=== PATIENT | female | born 1965 | race Caucasian/White ===

== ENCOUNTER 2016-08-15 08:42 | Day surgery (SDC) | payer BC, OTHER ==
[~2016-08-15 08:42] MED LIST: RINGERS SOLUTION,LACTATED 1,000 ML IV PRN
--- OUTSIDE RECORDS SUMMARY | 2016-08-15 08:44 | XMS REPORT | Continuity of Care Document ---
:1965 Author Organization [facility] ([facility]) Address [address] [place] [address] Phone [phone] Care Team Providers Name Role Phone Unavailable Primary Care Provider Unavailable Source Comments This disclosure is being made pursuant to the Care Everywhere program, applicable federal and state laws, and may not contain all informaitonavailable regarding this patient.[facility] ([facility]) Active Allergies and Adverse Reactions Not on File Current Medications Not on file Active Problems Not on file Social History Tobacco Use Types Packs/Day Years Used Date Never Assessed Plan of Care Health Maintenance Due Date Last Done Comments HCV Screening 1965 Hepatitis B Vaccine (1 of 3 - Primary Series) 1965 Tdap Vaccine 11/26/1975 Lipid Disorder Screening 1982 MMR Vaccine 1982 Td Vaccine 1982 Cervical Cancer Screening 1994 Mammogram 2004 Colonoscopy 2014 Influenza Vaccine: Seasonal (#1) 01/24/2016 Results from Last 3 Months Not on file
[2016-08-15 09:02] LABS: Hematocrit 38.7 % (37.0-47.0); Hemoglobin 13.3 gm/dL (12.5-16.0); Mean Cell Volume 87.2 fl (78-100); Mean Corpuscular Hgb Conc 34.4 g/dl (32-36); Mean Platelet Volume 9.8 fl (6.0-9.5); Neutrophil # 2.6 K/mm3 (1.3-6.0); Neutrophil % 52.2 % (42-75.0); Platelet Count 265 K/mm3 (150-450); Red Blood Count 4.44 M/mm3 (4.2-5.4); Red Cell Distribution Width 12.1 % (11.5-14.0)
[2016-08-15] MEDS ORDERED: RINGERS SOLUTION,LACTATED 1,000 ML IV ONE (09:21)
[2016-08-15] MEDS ORDERED: oxyCODONE HCL/ACETAMINOPHEN 1 TAB TABLET PO PRN (10:32)
[2016-08-15] MEDS ORDERED: IBUPROFEN 600 MG TABLET PO PRN (10:33)
[2016-08-15 11:21] VITALS: BP 126/82
--- NOTE | 2016-08-15 16:38 | OR ---
Operative Report - Dictated Report Narrative: Operative Report 08/15/16 Hysteroscopy Dilatation and Curettage Preoperative Diagnosis: Abnormal Appearance of the Endometrium Postoperative Diagnosis: Abnormal Appearance of the Endometrium Procedure: Attempted Hysteroscopy Surgeon: Kacie Mueller M.D. Anesthesia: Clem Hale CRNA, IV sedation Findings: Unable to pass uterine sound or 2.5 mm hysteroscope secondary to scarring from her Novasure Fluids: 200 ml EBL: Minimal Drains: None Complications: None Condition: Stable Pathology: None Procedure: The patient was taken to the operating room with IV fluids running. She was placed in the dorsal lithotomy position after anesthesia was induced. A bivalve speculum was placed in the vagina. The anterior lip of the cervix was grasped with a single-tooth tenaculum. Uterine sound was unable to be passed. The hysteroscope was introduced into the endocervical canal but there was significant scarring and unable to pass through the internal cervical os due to patient's history of Novasure. The hysteroscope was removed. The single-tooth tenaculum was removed. Sites were hemostatic. The speculum was removed from the vagina. Sponge counts were correct 2. The patient tolerated the procedure well.
== END 2016-08-15 08:43 | disposition home or self-care (01) ==
LOC: AMB 08:42
PROVIDERS: ATTEND Obstetrics & Gynecology
PROC: 0UJH8ZZ Inspection of Vagina and Cul-de-sac, Via Natural or Artificial Opening Endoscopic (ICD-10-PCS; principal; 2016-08-15 10:05)
DX: N83.8 Other noninflammatory disorders of ovary, fallopian tube and broad ligament (principal); N91.2 Amenorrhea, unspecified; Z68.23 Body mass index [BMI] 23.0-23.9, adult

== ENCOUNTER 2017-07-12 18:30 | Emergency (ER) | payer BC, OTHER ==
[2017-07-12 18:55] VITALS: BP 154/99
[2017-07-12 19:34] LABS: Mean Cell Volume 87.2 fl (78-100); Mean Corpuscular Hemoglobin 29.8 pg (27-31); Mean Corpuscular Hgb Conc 34.2 g/dl (32-36); Mean Platelet Volume 10.2 fl (6.0-9.5); Neutrophil # 4.9 K/mm3 (1.3-6.0); Neutrophil % 59.4 % (42-75.0); Platelet Count 257 K/mm3 (150-450); Red Blood Count 4.36 M/mm3 (4.2-5.4); White Blood Count 8.3 K/mm3 (4.0-10.5)
[2017-07-12 19:43] LABS: Albumin * 3.8 gm/dl (3.4-5.0); Anion Gap 8.4 mmol/L (6.8-13.8); BUN/Creatinine Ratio 23.3 (9.0-21.6); Bilirubin, Total 0.3 mg/dL (0.0-1.1); Ca. Corrected For Albumin 8.7 mg/dL (8.4-10.2); Calcium * 8.9 mg/dL (7.9-10.9); Carbon Dioxide 31.2 mmol/L (24-32.6); Potassium 3.6 mmol/L (3.4-4.6); Total Protein 7.6 gm/dL (6.2-8.2)
[2017-07-12] MEDS ORDERED: ORPHENADRINE CITRATE 30 MG/ML VIAL IM ONE (19:59)
[2017-07-12] MEDS ORDERED: KETOROLAC TROMETHAMINE 60 MG/2 ML VIAL IM ONE ×2 (19:59→20:06)
--- NOTE | 2017-07-12 20:01 | ERNOTE ---
Date of Service: 07/12/17 Time Seen by Provider: 07/12/17 19:03 Stated Complaint: RT SIDE PAIN Presenting Symptoms:: cough, other - Right chest pain Source: patient, RN notes reviewed Exam Limitations: no limitations Immunizations: IMMUNIZATION HX Immunizations Up to Date Yes Allergies/Adverse Reactions: Allergies Sulfa (Sulfonamide Antibiotics) Allergy (Mild, Verified 07/12/17 18:56) rash acetaminophen [From Darvocet-N 100] Adverse Reaction (Mild, Verified 07/12/17 18 :56) Vomiting propoxyphene napsylate [From Darvocet-N 100] Adverse Reaction (Mild, Verified 18:56) Vomiting tramadol Adverse Reaction (Mild, Verified 07/12/17 18:56) ITCHING ALL OVER Home Medications: HOME MEDICATIONS Calcium Carbonate/Vitamin D3 [Calcium 600 + Vit D 400 Tablet] 1 each PO DAILY [Last Taken Unknown] Imipramine HCl [Tofranil] 50 mg PO HS 08/13/13 [Last Taken Unknown] Lactobacillus Acidophilus [Probiotic] 1 each PO DAILY 08/13/13 [Last Taken Unknown] Multivitamins [Multivitamin Nighat] 1 cap PO DAILY 08/13/13 [Last Taken Unknown] Vitamin E 400 unit PO DAILY 05/03/15 [Last Taken Unknown] valACYclovir HCL [Valtrex] 500 mg PO DAILY PRN 05/03/15 [Last Taken Unknown] Ascorbic Acid [Vitamin C] 500 mg PO DAILY 08/11/16 [Last Taken Unknown] Clotrimazole/Betamet Diprop [Lotrisone Cream] 1 appl TP BID 08/11/16 [Last Taken Unknown] Ibuprofen [Motrin] 600 mg PO Q6H PRN #20 tab 08/15/16 [Last Taken Unknown] oxyCODONE HCL/ACETAMINOPHEN [Percocet 5 MG/325 MG] 1 tab PO Q6H PRN #5 tablet [Last Taken Unknown] Cyclobenzaprine HCl [Flexeril] 10 mg PO TID PRN #20 tab 07/12/17 [Last Taken Unknown] Ibuprofen [Motrin] 600 mg PO Q6H PRN #40 tab 07/12/17 [Last Taken Unknown] - History of Present Ilness Narrative: Theresa is a 51 year old female who presents to the ED for an ongoing cough and right sided chest pain that has gradually worsened over the past few days. She initially became ill with the cough in mid-April. She saw her PCP a week ago. He diagnosed her with "walking pneumonia" and started her on Levaquin. She has finished the antibiotic but continues to cough. She denies any fevers or chills. She otherwise feels generally well. Associated Symptoms: Reports: chest pain/soreness, cough. Denies: shortness of breath, wheezing, facial pain, nasal congestion, nasal drainage, dizziness, lightheadedness, earache, headache, sore throat, muscle aches, fever/chills Prior Treatment: Reports: recently seen, treated by physician Review of Systems - Review of Systems Constitutional: Present: recent illness. Absent: fever, chills, malaise EYE: Present: no symptoms reported ENT: Absent: nose congestion, sore throat Respiratory: Present: cough. Absent: shortness of breath, wheezing Cardiology: Present: chest pain. Absent: palpitations, syncope, edema Gastrointestinal/Abdominal: Absent: nausea, vomiting, abdominal pain Genitourinary: Present: no symptoms reported Musculoskeletal: Absent: neck pain, joint pain Skin: Absent: rash, lesions, lumps Neurological: Absent: headache, dizziness/light-headedness Endocrine: Present: no symptoms reported Hematologic/Lymphatic: Absent: easy bruising, easy bleeding Psych: Absent: anxiety, depressed - Patient's Past Medical History Patient History - Medical: No pertinent hx Patient History - Cardiac/Respiratory: No pertinent hx Patient History - Cancer: No Hx of Cancer Patient History - Surgical Procedures: Cholecystectomy, Colonoscopy, Hysterectomy, Other Patient History - Other: None LMP (females 10-50): Menopausal - Family History Brother Family History - Medical: Diabetes Type 2 Family History - Cardiac/Respiratory: No pertinent hx Family History - Cancer: No pertinent family hx Mother Family History - Medical: Arthritis Family History - Cardiac/Respiratory: Coronary Heart Disease Family History - Cancer: No pertinent family hx Grandmother-Maternal Family History - Medical: , No pertinent hx Family History - Cardiac/Respiratory: No pertinent hx Family History - Cancer: No pertinent family hx Father Family History - Medical: , No pertinent hx Family History - Cardiac/Respiratory: Myocardial Infarction Family History - Cancer: No pertinent family hx - Social History Living Situations: home Abuse History: No History of abuse Psych History: No pertinent hx Smoking Status: Never smoker Alcohol Use: rarely Drug Use: none - Immunizations Immunizations Up to Date: Yes Physical Exam - Physical Exam General Appearance: Present: wd/wn, alert, mild distress Head Exam: Present: normal inspection Eye Exam: Normal inspection: bilateral Ears, Nose, Throat: Present: normal ENT inspection, normal pharynx Neck: Present: normal inspection, nontender, supple, full range of motion Respiratory: Present: no respiratory distress, normal breath sounds, no accessory muscle use, lungs clear, chest tenderness - Right lower anterior chest Cardiovascular/Chest: Present: regular rate, rhythm, no murmur, normal peripheral pulses Gastrointestinal/Abdominal: Present: nontender, nondistended, soft Back Exam: Present: normal inspection, normal range of motion, no vertebral tenderness Extremity Exam: Present: normal inspection, no edema Neurological Exam: Present: alert, oriented, normal mood/affect, no motor/ sensory deficits Skin Exam: Present: normal color, warm/dry ED Progress - Results and Orders Patient's Lab Results:: I have reviewed the patient's lab results. - Vital Signs Patient's Vital Signs:: I have reviewed the patient's vital signs. Vital Signs: Vital Signs 07/12/17 07/12/17 18:45 19:09 Temperature 36.2 C L 36.2 C L Pulse Rate 95 95 Blood Pressure 154/99 154/99 O2 Sat by Pulse 100 100 Oximetry - X-Ray X-Ray #1 X-Ray: chest Interpretation: Reviewed by me X-ray Comments: No acute cardiopulmonary process noted - Progress/Reassessment Chief Complaint: Upper Respiratory Symptoms Progress:: Improved Departure Clinical Impression: Chest wall pain - Departure Disposition: Home self-care Condition: Stable Instructions: Chest Wall Pain Referrals: Karl Berg MD [Primary Care Provider] - Prescriptions: Cyclobenzaprine HCl [Flexeril] 10 mg PO TID PRN #20 tab PRN Reason: MUSCLE SPASMS Ibuprofen [Motrin] 600 mg PO Q6H PRN #40 tab PRN Reason: Pain
[2017-07-12] MEDS ORDERED: ORPHENADRINE CITRATE 30 MG/ML VIAL ONE (20:06)
== END 2017-07-12 20:16 | disposition home or self-care (01) ==
LOC: ER 18:30
DX: R07.89 Other chest pain